=== PATIENT | male | born 1985 | race Caucasian/White ===

== ENCOUNTER 2016-07-25 01:34 | Emergency (ER) | payer OTHER ==
[~2016-07-25] VITALS: Ht 180.3 cm; Wt 85.1 kg
[~2016-07-25 01:34] MED LIST: AC500T PO; ADDR10T PO; ALBU0.63 IH; ALBU8.5H4 IH; ALBU8.5H6 IH; ALPR0.25 PO; AMOX500C5 PO; AMOX500T2 PO; CPR500T PO; DOXY100T41 PO; HYDR-3811 PO; No home medications; PRED20TA PO; depakote; zyprexa
--- OUTSIDE RECORDS SUMMARY | 2016-07-25 01:38 | XMS REPORT | Continuity of Care Document ---
Author Author [facility] Address Unknown Phone Unavailable Allergies Active Description Code Type Severity Reaction Onset Reported/Identified Relationship to Patient Clinical Status Yes SOLBID SOLBID Unknown N/A 11/21/2011 Yes SLOBID SLOBID Severe ANAPHYLAXIS 06/16/2015 Medications Problems Date Dx Coded Attending Type Code Diagnosis Diagnosed By 03/24/2012 Ot 873.42 03/24/2012 Ot E000.9 03/24/2012 Ot E849.0 03/24/2012 Ot E885.9 05/14/2012 Ot 297.1 05/14/2012 Ot 780.1 11/15/2012 DARYN STODDARD BRUCE A Ot 466.0 11/15/2012 DARYN DO, BRUCE A Ot 786.2 12/28/2012 DARYN DO, BRUCE A Ot 305.1 12/28/2012 DARYN DO, BRUCE A Ot 461.9 12/28/2012 DARYN DO, BRUCE A Ot 466.0 12/28/2012 DARYN DO, BRUCE A Ot 786.2 09/25/2013 DARYN DO, BRUCE A Ot 466.0 09/25/2013 DARYN DO, BRUCE A Ot 786.2 10/18/2013 ESTELLE GREEN, ANNIE Garza Ot 465.9 10/18/2013 ANNIE MCCABE MD Ot 466.0 11/13/2013 ADRIAN GREEN, BRENNA L Ot 719.47 11/13/2013 ADRIAN GREEN, BRENNA L Ot 845.00 11/13/2013 ADRIAN GREEN, BRENNA Carrillo Ot E928.9 01/11/2014 PAYTON GREEN, LÁZARO Isbell Ot 462 01/11/2014 PAYTON GREEN, LÁZARO Isbell Ot 780.60 02/17/2014 LEANNE GREEN, DANIEL A Ot 300.00 10/26/2014 GIOVANNI GREEN, PEDRO Doherty Ot 882.0 10/26/2014 PEDRO DAVILA MD Ot E000.9 10/26/2014 PEDRO DAVILA MD Ot E030 10/26/2014 GIOVANNI GREEN, PEDRO Doherty Ot E849.0 10/26/2014 PEDRO DAVILA MD Ot E920.3 11/24/2014 ESTELLE GREEN, ANNIE Garza Ot 521.00 11/24/2014 ESTELLE GREEN, ANNIE Garza Ot 523.10 11/24/2014 ESTELLE GREEN, ANNIE Garza Ot 525.9 06/20/2015 PEDRO DAVILA MD Ot R11.2 06/20/2015 PEDRO DAVILA MD Ot R19.7 02/29/2016 VONNIE NELSON DO Ot K02.9 DENTAL CARIES, UNSPECIFIED 02/29/2016 NELSON VONNIE STODDARD Ot K05.20 AGGRESSIVE PERIODONTITIS, UNSPECIFIED 02/29/2016 NELSON VONNIE STODDARD Ot K05.319 CHRONIC PERIODONTITIS, LOCALIZED, UNSPEC 02/29/2016 VONNIE NELSON DO Ot R68.84 JAW PAIN 03/06/2016 NELSON VONNIE STODDARD Ot K02.9 DENTAL CARIES, UNSPECIFIED 03/06/2016 NELSON DO, VONNIE Pedraza Ot K05.20 AGGRESSIVE PERIODONTITIS, UNSPECIFIED 03/06/2016 NELSON , VONNIE Pedraza Ot K05.319 CHRONIC PERIODONTITIS, LOCALIZED, UNSPEC 03/06/2016 VONNIE NELSON DO Ot R68.84 JAW PAIN 03/08/2016 NELSON VONNIE STODDARD Ot K02.9 DENTAL CARIES, UNSPECIFIED 03/08/2016 NELSON VONNIE STODDARD Ot K05.20 AGGRESSIVE PERIODONTITIS, UNSPECIFIED 03/08/2016 NELSON VONNIE STODDARD Ot K05.319 CHRONIC PERIODONTITIS, LOCALIZED, UNSPEC 03/08/2016 NELSON VONNIE STODDARD Ot R68.84 JAW PAIN Procedures Results Encounters ACCT No. Visit Date/Time Discharge Status Pt. Type Provider Facility Loc./Unit Complaint [id number] 02/29/2016 07:32:00 2015 08:06:00 DIS Emergency NELSON VONNIE STODDARD [facility] ED [id number] 06/16/2015 19:20:00 2015 19:50:00 DIS Outpatient GIOVANNI GREEN, PEDRO [facility] ED [id number] 11/24/2014 14:16:00 2014 15:22:00 DIS Emergency ESTELLE GREEN, [facility] ED [id number] 10/26/2014 02:19:00 2014 03:15:00 DIS Emergency GIOVANNI GREEN, PEDRO Doherty [facility] ED [id number] 02/17/2014 08:19:00 2013 12:49:00 [id number] 01/11/2014 15:39:00 2013 17:06:00 DIS Emergency PAYTON GREEN, LÁZARO [facility] ED [id number] 11/13/2013 11:04:00 2013 16:11:00 DIS Emergency ADRIAN GREEN, BRENNA [facility] ED [id number] 10/18/2013 12:18:00 2013 13:21:00 DIS Emergency ESTELLE GREEN, [facility] ED [id number] 09/25/2013 12:49:00 2013 14:22:00 [id number] 12/28/2012 07:35:00 2012 08:30:00 [facility] [id number] 11/15/2012 04:42:00 2012 [facility]19[id number] 05/14/2012 19:01:00 Document Registration [id number] 03/24/2012 18:15:00 Document Registration
--- OUTSIDE RECORDS SUMMARY | 2016-07-25 01:42 | XMS REPORT | Continuity of Care Document ---
Author Author [facility] Address Unknown Phone Unavailable Allergies Active Description [...] Status Pt. Type Provider Facility Loc./Unit Complaint [id number] 02/29/2016 07:32:00 2015 08:06:00 DIS Emergency NELSON VONNIE STODDARD [facility] ED [id number] 06/16/2015 19:20:00 2015 19:50:00 DIS Outpatient GIOVANNI GREEN, PEDRO [facility] ED [id number] 11/24/2014 14:16:00 2014 15:22:00 DIS Emergency ESTELLE GREEN, [facility] ED [id number] 10/26/2014 02:19:00 2014 03:15:00 DIS Emergency GIOVANNI GREEN, PEDRO Doherty [facility] ED [id number] 02/17/2014 08:19:00 2013 12:49:00 [facility] [id number] 01/11/2014 15:39:00 2013 17:06:00 DIS Emergency PAYTON GREEN, LÁZARO [facility] ED [id number] 11/13/2013 11:04:00 2013 16:11:00 DIS Emergency ADRIAN GREEN, BRENNA [facility] ED [id number] 10/18/2013 12:18:00 2013 13:21:00 DIS Emergency ESTELLE GREEN, [facility] ED [id number] 09/25/2013 12:49:00 2013 14:22:00 [id number] 12/28/2012 07:35:00 2012 08:30:00 [facility] [id number] 11/15/2012 04:42:00 2012 06:19:00 [id number] 05/14/2012 19:01:00 Document Registration [id number] 03/24/2012 18:15:00 Document Registration
[2016-07-25 02:05] VITALS: BP 125/84
[2016-07-25] MEDS ORDERED: BACITRACIN OINTMENT 0.9 GM PACKET TOP ONE (02:40)
[2016-07-25] MEDS ORDERED: ED- HYDROcodone/ACETAMINOPHEN 5MG/325MG (NORCO) 6 TABLETS/BTL PO ONE (02:40)
[2016-07-25] MEDS ORDERED: CEPHALEXIN 500 MG (KEFLEX) CAPSULE PO ONE (02:40)
[2016-07-25] MEDS ORDERED: HYDR-3702 PO (02:45)
[2016-07-25] MEDS ORDERED: CEPH-331 PO (02:45)
--- NOTE | 2016-07-25 07:49 | Diagnostic Imaging Report ---
EXAMINATION: Left thumb, 3 views. COMPARISON: None. INDICATION: 31-year-old male, tip of thumb pinched by machine. FINDINGS: There is no identified acute fracture or dislocation. There is no radiopaque foreign body. There is no prominent focal soft tissue swelling. Joint spaces are well-preserved. There is normal bone mineralization and alignment. IMPRESSION: Unremarkable radiographs of the left thumb. Dictated by: Dictated on workstation # [id number]
== END 2016-07-25 03:03 | disposition home or self-care (01) ==
LOC: ED 01:38
DX: S67.01XA Crushing injury of right thumb, initial encounter (principal); W31.89XA Contact with other specified machinery, initial encounter; Y92.89 Other specified places as the place of occurrence of the external cause; Y99.0 Civilian activity done for income or pay
CPT/HCPCS: 99282; 99283

== ENCOUNTER 2016-07-25 01:45 | Outpatient (RCR) ==
[2016-07-25] MEDS ORDERED: HYDR-3702 PO (02:45)
[2016-07-25] MEDS ORDERED: CEPH-331 PO (02:45)
== END 2016-08-20 18:21 | disposition home or self-care (01) ==
LOC: EUOP 01:45
PROVIDERS: ATTEND Emergency Medicine
DX: Z02.89 Encounter for other administrative examinations (principal); Z02.83 Encounter for blood-alcohol and blood-drug test